=== PATIENT | male | born 1960 | race Hispanic/Latino ===

== ENCOUNTER 2019-03-05 07:44 | Inpatient (IN) | payer OTHER ==
[2019-03-05 09:50] VITALS: BMI 37.3
[2019-03-05] MEDS ORDERED: Lidocaine 1% w Epi 1:100,000 Inj ONE (10:55)
[2019-03-05] MEDS ORDERED: Bacitracin Ointment 30 GM TUBE ONE (10:56)
[2019-03-05] MEDS ORDERED: Absorbable Gelatin Sponge Size 12-7 ONE (10:56)
[2019-03-05] MEDS ORDERED: Thrombin Topical 5,000 Int Units Spray Kit ONE (10:57)
[2019-03-05] MEDS ORDERED: Etomidate 20 mg/10ml Inj IV ONE (11:18)
[2019-03-05] MEDS ORDERED: Propofol 10 mg/ml Inj (20 ML) ONE (11:18)
[2019-03-05] MEDS ORDERED: Succinylcholine 200 mg/10 ml Inj IV ONE (11:18)
[2019-03-05] MEDS ORDERED: Rocuronium 10 mg/ml (5 ml) ONE ×2 (11:18→13:12)
[2019-03-05] MEDS ORDERED: Bupivacaine HCl/Epi 0.5% 1:20000 30 ML SOL IJ ONE (11:19)
[2019-03-05] MEDS ORDERED: Lidocaine 2% MPF (5 ml) Inj ONE (11:23)
[2019-03-05] MEDS ORDERED: Lactated Ringer's 1,000 ML IV ONE ×3 (11:30→13:00)
[2019-03-05] MEDS ORDERED: Midazolam 2 MG/2 ML VIAL ONE (11:41)
[2019-03-05] MEDS ORDERED: Phenylephrine 10 mg/ml Inj ONE ×2 (12:13)
[2019-03-05] MEDS ORDERED: Dexamethasone 4 mg/1 ml ONE (12:19)
[2019-03-05] MEDS ORDERED: ePHEDrine 50 mg/ml Inj ONE (12:23)
[2019-03-05] MEDS ORDERED: EPINEPHrine 1 mg/ml (1:1000) Inj ONE (13:23)
[2019-03-05] MEDS ORDERED: Neostigmine 1:1000 (1 mg/ml) Inj ONE (14:35)
--- NOTE | 2019-03-05 14:59 | PCM.SURG1 ---
Surgeon's Initial Post Op Note - Surgeon's Notes Surgeon: Rain hSeldon MD Site Head: MD Janay Jorgensen PA-C; Maria Guadalupe Richardson DPM Type of Anesthesia: General Endo Pre-Operative Diagnosis: Left shoulder OA Operative Findings: see op report Post-Operative Diagnosis: same as pre-op dx Operation Performed: L TSR Specimen/Specimens Removed: lt shoulder humeral head and soft tissue Estimated Blood Loss: EBL {In ML}: 200 Date of Surgery/Procedure: 03/05/19 Time of Surgery/Procedure: 12:00
--- NOTE | 2019-03-05 15:02 | PCM.ANESB1 ---
Interscalene Block - Brachial Plexus Date of Procedure: 03/05/19 Anesthesiologist: Balwinder Pre-Procedure Diagnosis: Left shoulder advanced arthritis Post-Procedure Diagnosis: Same Procedure Performed: Interscalene Block of Brachial Plexus Left - Procedure Interscalene Block of Brachial Plexus: This procedure was explained to the patient that it is for post-operative pain management. Consent was obtained after a thorough discussion with the patient regarding the benefits and possible complications of local anesthetic block of the Brachial Plexus at the Interscalene area. The patient was brought to the Operating Room and standard monitors were applied. Time out was held with the circulating nurse to confirm the correct surgery and appropriate block. After applying Oxygen by nasal cannula and administering IV Sedation, the patient's head was gently rotated away from the __left____operative shoulder and the anterior scalene groove was carefully palpated. The ultrasound transducer was then applied to the skin in the transverse plane and the brachial plexus was visualized lateral to the carotid artery and in between the anterior and middle scalene muscles. After identification,the anterior lateral portion of the neck was prepped with Chloraprep and Lidocaine 1% was injected subcutaneously for topical analgesia. At this point, a # 22 gauge Stimuplex 2 inches insulated needle was inserted into the interscalene groove and directed in a caudal and midline direction. The needle was inserted lateral to the ultrasound transducer in-plane towards the brachial plexus in a [id number] direction. Needle advancement was performed carefully under direct ultrasound visualization. Nerve stimulator was used and twitched of the affected extremity including the hand brachialis muscles, biceps and the deltoid was obtained at a current of __0.4___MA. After repeated negative aspiration,_2____cc of__0.5%___,__bupivacaine with 1:200,000 epinephrine were injected and this was followed with __28___cc of __0.5___% __bupivacaine with 1:200,000 epinephrine . Under ultrasound guidance the local anesthetics were observed surrounding the roots of the brachial plexus. The needle was removed intact and sterile dressing was applied. The patient had stable vital signs, was conscious and in no apparent distress. The patient tolerated the interscalene block of the bracheal plexus well with stable vital signs and was prepared for subsequent surgery.
[2019-03-05] MEDS: HYDROmorphone 0.5 mg/0.5 ml ISec IVP PRN ×2 (15:35→15:50)
--- NOTE | 2019-03-05 16:11 | RAD ---
Date of service: 03/05/2019 PROCEDURE: Radiographs of the Left Shoulder HISTORY: s/p LTSR COMPARISON: No prior. TECHNIQUE: Single views obtained. FINDINGS: BONES: Normal. No fracture. JOINTS: Satisfactory position alignment of components left shoulder arthroplasty. SOFT TISSUES: Normal. OTHER FINDINGS: None. IMPRESSION: Satisfactory postoperative status.
[2019-03-05] MEDS: Lactated Ringer's 1,000 ML IV SCH (17:36)
[2019-03-05] MEDS: oxyCODONE 10 mg Immediate Release Tab PO PRN (18:33)
[2019-03-05] MEDS ORDERED: ceFAZolin 1 GM in Sodium Chloride 0.9% 100 ML IVPB ONE (19:30)
--- NOTE | 2019-03-06 00:49 | OP ---
PROCEDURE DATE: 03/05/2019 ATTENDING PHYSICIAN: Rain Sheldon MD FACER OPERATOR: Maciej Armando MD PREOPERATIVE DIAGNOSIS: Left shoulder traumatic arthritis. POSTOPERATIVE DIAGNOSIS: Left shoulder traumatic arthritis. PROCEDURE PERFORMED: Left total shoulder replacement. IMPLANTS : [employer] size-10 short stem, 50 mm x 19 mm head, medium and glenoid. ANESTHESIA TYPE: General and interscalene block. ESTIMATED BLOOD LOSS: 200 mL. SPECIMENS: None. COMPLICATIONS: None. INDICATIONS: The patient is a 59-year-old male who had a traumatic left shoulder injury. The patient has failed an arthroscopy procedure, and during arthroscopy it was discovered the patient had a large growing of lesion. Since the patient's symptoms did not improve, he was indicated for left total shoulder replacement. I had reviewed the risks and benefits of the surgery and the alternatives in detail. The risks included, but are not limited myrna bleeding, infection, nerve vessel damage, loosening of hardware, failure of tendon repair, need for further surgery, blood clots, limb loss, reflex sympathetic dystrophy, and even . The patient fully understood the risks and benefits and opted to proceed with the procedure. PROCEDURE PERFORMED: On the day of the surgery, the patient was admitted to preoperative holding area. A laterality sheet was completed confirming the left shoulder to be the correct operative site. The patient underwent general anesthesia and interscalene block. He was placed in a beach chair position with the head of back to 50 degrees. All the bony prominences were well padded and secured. The left shoulder was draped and prepped in standard sterile fashion. Timeout was completed confirming the patient's left shoulder to be correct operative site. The patient's preoperative range of motion included forward flexion to 160, external rotation of 50, internal rotation of 50. A 10 cm incision was made over a deltopectoral interval. Skin dissection was taken down and cephalic vein was identified, and the interval between deltoid and pectoralis major was identified. A retractor was placed and superior 1 cm portion of the pectoralis tendon was released for exposure. The subscapularis tendon was identified and subscapularis tenotomy was performed. The head was dislocated. It was found to be arthritic secondary to cartilage injury. Using the guide and a saw blade, an anatomic cut was made and it was noted that 50 mm head will be appropriate for this patient's neck. The femoral canal was broached up with size 10 stem. The femoral canal and head cut surface were protected and attention was given to the glenoid. After a 360 degree of release of the capsule, the glenoid was exposed. A pilot control operator drill hole was made and using a reamer, the glenoid was reamed until the size medium was providing the appropriate coverage. A trial medium plate was placed. The appropriate drill hole was made. Next, the glenoid was copiously irrigated using pulse lavage and the end component was opened and cement was impacted along with bone graft for the cage into the central peg. The glenoid component was thus impacted and cemented into its anatomic position and cement was allowed to harden. Next, the attention was given back to the humeral head. The humeral head was dislocated and trial was performed with the actual 10 size stem and it was noted that an eccentric 50 mm x 19 mm head will be appropriate for this patient. The implant was secured on to the stem and shoulder was reduced and taken through a range of motion. The patient had appropriate stability and range of motion. Next, the wound was copiously irrigated with pulse lavage solution. The subscapularis tenotomy was closed using #5 FiberWire sutures and the rotator interval was also closed using #2 Vicryl sutures. Afterwards, the skin was closed in standard sterile manner and a sterile dressing was applied. The patient was extubated, transferred to a stretcher and taken to recovery room. There was no complication of surgery. Dr. Maciej Armando is a board-certified orthopedic surgeon who was present for the case as his participation was crucial in patient positioning, retraction of critical neurovascular structure, and successful completion of the surgery. Rain Sheldon MD
[2019-03-06] MEDS: oxyCODONE 10 mg Immediate Release Tab PO PRN ×2 (02:26→14:21)
[2019-03-06] MEDS ORDERED: ceFAZolin 1 GM in Sodium Chloride 0.9% 100 ML IVPB ONE (02:30)
[2019-03-06 06:20] LABS: BASO % 0.2 % (0.0-2.0); EOS % 0.1 % (0.0-4.0); HEMOGLOBIN 11.8 g/dL (12.0-18.0); LYMPH # 1.2 K/uL (1.0-4.3); MEAN CELL VOLUME 94.2 fl (80.0-94.0); MEAN CORPUSCULAR HEMOGLOBIN 30.7 pg (27.0-31.0); MEAN CORPUSCULAR HGB CONC 32.6 g/dL (33.0-37.0); MEAN PLATELET VOLUME 7.8 fl (7.2-11.7); MONO # 1.1 K/uL (0.0-0.8); MONO % 8.6 % (0.0-10.0); NEUT # 10.2 K/uL (1.8-7.0); NEUT % 81.1 % (50.0-75.0); RBC 3.85 Mil/uL (4.40-5.90); RED CELL DISTRIBUTION WIDTH 13.1 % (11.5-14.5); WHITE BLOOD COUNT 12.5 K/uL (4.8-10.8)
[2019-03-06 06:25] LABS: BLOOD UREA NITROGEN 12 mg/dl (9-20); CALCIUM 8.2 mg/dL (8.4-10.2); GFR NON-AFRICAN AMERICAN > 60
[2019-03-06] MEDS: Lactated Ringer's 1,000 ML IV SCH (06:52)
[2019-03-06] MEDS ORDERED: oxyCODONE 10 mg Immediate Release Tab PO STA (07:02)
--- NOTE | 2019-03-06 14:31 | CP.PCM.PCO ---
Assessment/Plan - Assessment/Plan Assessment (Free Text): Pt stable, L shoulder dressing with aquacel c/d/i L arm in sling, sensation intact, +2 radial pulses, cap refill < 2 secs Pt offers no c/o, denies pain at this time, pt had a nerve block during sx. Pt seen and cleared for d/c home by Dr. Sheldon Pt requesting pain med, looked up pt in [facility], pt had Rx of Oxycodone 20mg, 60 pills for a 30 day supply filled on 02/25/19. Pt states his PMD prescribed pain meds for him but states that he has no more pain meds because he threw them out. Explained to pt narcotics are controlled and it it difficult to fill a pain Rx when he just had pain meds filled. Dr. Sheldon 's PAJanay made aware, they will send Rx of Tramadol to the pt's pharmacy. Pt seen and cleared for d/c home by Dr. Wylie F/u with PMD and Dr. Sheldon in 1 week
[2019-03-06 16:14] VITALS: BP 138/83; PULSE 81; RESP 20; TEMP 98.2; O2SAT 93
--- NOTE | 2019-03-07 00:31 | CP.PCM.HP ---
History of Present Illness - History of Present Illness History of Present Illness: This is a 59 y/o male who had left TSR yesterday. Today is his 1st day post op. He is doing well. The last 24 hrs post op was unremarkable except for some pain in the op site relieved by oxycodone. Past Patient History - Past Medical History & Family History Past Medical History?: Yes - Past Social History Smoking Status: Never Smoked - CARDIAC Hx Cardiac Disorders: No - PULMONARY Hx Respiratory Disorders: No - NEUROLOGICAL Hx Neurological Disorder: No - HEENT Hx HEENT Problems: No - RENAL Hx Chronic Kidney Disease: No - ENDOCRINE/METABOLIC Hx Endocrine Disorders: No - HEMATOLOGICAL/ONCOLOGICAL Hx Blood Disorders: No - INTEGUMENTARY Hx Dermatological Problems: No - MUSCULOSKELETAL/RHEUMATOLOGICAL Hx Back Pain: Yes Other/Comment: Lt.Shoulder pain - GASTROINTESTINAL Hx Gastrointestinal Disorders: No - GENITOURINARY/GYNECOLOGICAL Hx Genitourinary Disorders: No - PSYCHIATRIC Hx Emotional Abuse: No Hx Physical Abuse: No - SURGICAL HISTORY Hx Surgeries: Yes Hx Appendectomy: Yes Hx Arthroscopy: Yes (Lt.Shoulder) Hx Herniorrhaphy: Yes (RT Hernia) - ANESTHESIA Hx Anesthesia: Yes Hx Anesthesia Reactions: No Meds Home Medications: Home Medication List Medication Instructions Recorded Confirmed Type Aspirin 325 mg PO DAILY tab 03/06/19 Rx Docusate [Colace] 100 mg PO BID cap 03/06/19 Rx Allergies/Adverse Reactions: Allergies Allergy/AdvReac Type Severity Reaction Status Date / Time cortisone Allergy Severe URTICARIA Verified 03/05/19 08:46 Results - Vital Signs Recent Vital Signs: Last Vital Signs Temp 98.2 F 03/06/19 15:52 Pulse 81 03/06/19 15:52 Resp 20 03/06/19 15:52 BP 138/83 03/06/19 15:52 Pulse Ox 93 L 03/06/19 15:52 - Labs Result Diagrams: 03/06/19 05:25 03/06/19 05:25 Labs: Laboratory Results - last 24 hr 03/06/19 03/06/19 05:25 05:25 WBC 12.5 H RBC 3.85 L Hgb 11.8 L Hct 36.2 MCV 94.2 H MCH 30.7 MCHC 32.6 L RDW 13.1 Plt Count 249 MPV 7.8 Neut % (Auto) 81.1 H Lymph % (Auto) 10.0 L [place] % (Auto) 8.6 Eos % (Auto) 0.1 Baso % (Auto) 0.2 Neut # (Auto) 10.2 H Lymph # (Auto) 1.2 [place] # (Auto) 1.1 H Eos # (Auto) 0.0 Baso # (Auto) 0.0 Sodium 134 Potassium 4.1 Chloride 101 Carbon Dioxide 24 Anion Gap 13 BUN 12 Creatinine 0.6 L Est GFR ( Amer) > 60 Est GFR (Non-Af Amer) > 60 Random Glucose 194 H Calcium 8.2 L
== END 2019-03-06 16:35 | disposition home or self-care (01) | DRG 483 ==
LOC: H.OPSURG 07:44 → H.ERHOLD 14:59 → H.MEDSURG1 17:38
PROVIDERS: ADMIT Family Medicine; ATTEND Family Medicine
PROC: 3E0T33Z Introduction of Anti-inflammatory into Peripheral Nerves and Plexi, Percutaneous Approach (ICD-10-PCS; 2019-03-05)
PROC: 0RRK0JZ Replacement of Left Shoulder Joint with Synthetic Substitute, Open Approach (ICD-10-PCS; principal; 2019-03-05 13:15)
PROC: 3E0T3BZ Introduction of Anesthetic Agent into Peripheral Nerves and Plexi, Percutaneous Approach (ICD-10-PCS; 2019-03-05 13:15)
DX: M12.512 Traumatic arthropathy, left shoulder (principal); M65.812 Other synovitis and tenosynovitis, left shoulder; Z79.82 Long term (current) use of aspirin